=== PATIENT | female | born 1990 | race Caucasian/White ===

== ENCOUNTER 2018-09-06 18:23 | Emergency (ER) | payer OTHER ==
[2018-09-06 18:36] VITALS: BP 131/71; PULSE 98; TEMP 98.8; BMI 40.2
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
[2018-09-06] MEDS ORDERED: IBUPROFEN 600 MG TABLET (FP) PO ONE ×2 (20:13)
== END 2018-09-06 20:19 | disposition home or self-care (01) ==
LOC: JERFT 18:23
DX: S50.02XA Contusion of left elbow, initial encounter (principal); V49.49XA Driver injured in collision with other motor vehicles in traffic accident, initial encounter; Y92.414 Local residential or business street as the place of occurrence of the external cause; Y93.89 Activity, other specified; Y99.8 Other external cause status
CPT/HCPCS: 73070-TC-LT-FY; 99281-25

== ENCOUNTER 2021-10-25 11:26 | Emergency (ER) | payer OTHER ==
[2021-10-25 11:35] VITALS: BP 124/72; PULSE 77; RESP 20; TEMP 99.7; BMI 32.3
[2021-10-25] MEDS ORDERED: IBUPROFEN 400 MG TABLET (FP) PO ONE ×2 (11:49→11:54)
== END 2021-10-25 12:52 | disposition home or self-care (01) ==
LOC: FER 11:26
DX: M79.652 Pain in left thigh (principal)
CPT/HCPCS: 99283-25

== ENCOUNTER 2022-12-05 13:05 | Emergency (ER) | payer OTHER ==
[2022-12-05 13:14] VITALS: BP 104/72; PULSE 74; RESP 18; TEMP 98.7; BMI 32.0
[2022-12-05] MEDS ORDERED: KETOROLAC TROMETHAMINE 30 MG/1 ML VIAL IM ONE (14:17)
[2022-12-05] MEDS ORDERED: KETOROLAC TROMETHAMINE 30 MG/1 ML VIAL ONE (14:20)
[2022-12-05] MEDS ORDERED: IBUPROFEN 600 MG TABLET (FP) PO ONE (15:19)
== END 2022-12-05 15:30 | disposition home or self-care (01) ==
LOC: FER 13:05
PROC: 3E0233Z Introduction of Anti-inflammatory into Muscle, Percutaneous Approach (ICD-10-PCS; principal; 2022-12-05)
DX: M25.551 Pain in right hip (principal); M53.3 Sacrococcygeal disorders, not elsewhere classified; S70.01XA Contusion of right hip, initial encounter; W10.8XXA Fall (on) (from) other stairs and steps, initial encounter
CPT/HCPCS: 72100-TC-FY; 73502-TC-RT-FY; 81025; 99284-25

== ENCOUNTER 2023-09-25 15:01 | Emergency (ER) | payer OTHER ==
[2023-09-25 15:17] VITALS: BP 116/76; PULSE 79; RESP 16; TEMP 99; BMI 34.7
== END 2023-09-25 16:32 | disposition home or self-care (01) ==
LOC: JER 15:01
DX: N93.9 Abnormal uterine and vaginal bleeding, unspecified (principal)
CPT/HCPCS: 99283-25